=== PATIENT | female | born 1975 | race Two or more races ===

== ENCOUNTER 2020-11-29 10:30 | Emergency (ER) | payer OTHER ==
[~2020-11-29] VITALS: Ht 149.9 cm; Wt 117.9 kg
[2020-11-29 10:56] VITALS: BP 133/62
[2020-11-29] MEDS ORDERED: KETOROLAC TROMETH 60MG/2ML VIAL IM ONE (11:15)
== END 2020-11-29 11:59 | disposition home or self-care (01) ==
LOC: ER 10:30
DX: S83.91XA Sprain of unspecified site of right knee, initial encounter (principal); M17.11 Unilateral primary osteoarthritis, right knee; W18.09XA Striking against other object with subsequent fall, initial encounter; Y93.89 Activity, other specified; Y92.89 Other specified places as the place of occurrence of the external cause; Y99.8 Other external cause status
CPT/HCPCS: 73562; 96372; 99283; J1885

== ENCOUNTER 2023-01-23 11:04 | Emergency (ER) | payer MEDICAID, OTHER ==
[~2023-01-23] VITALS: Ht 149.9 cm; Wt 118.0 kg
[2023-01-23 12:00] VITALS: BP 113/72; PULSE 73; RESP 15; TEMP 97.3; O2SAT 98
== END 2023-01-23 13:05 | disposition home or self-care (01) ==
LOC: ER 11:04
DX: S93.401A Sprain of unspecified ligament of right ankle, initial encounter (principal); X50.1XXA Overexertion from prolonged static or awkward postures, initial encounter; Y93.89 Activity, other specified; Y92.89 Other specified places as the place of occurrence of the external cause; Y99.8 Other external cause status
CPT/HCPCS: 73610

== ENCOUNTER 2023-06-04 10:02 | Inpatient (IN) | payer MEDICAID ==
[~2023-06-04] VITALS: Ht 149.9 cm; Wt 58.6 kg
[2023-06-04 10:50] LABS: Urine Bacteria FEW /hpf (None Seen); Urine Blood Negative /uL (Negative); Urine Clarity HAZY (Clear); Urine Color Yellow (Yellow); Urine Mucus FEW (None Seen); Urine Protein, UAD TRACE (Negative); Urine Specific Gravity 1.021 (1.001-1.035); Urine Urobilinogen Normal (Negative); Urine WBC 2 /hpf (0 - 5); Urine pH 6.5 (5.0-8.0)
[2023-06-04] MEDS: ONDANSETRON ODT 4 MG TAB PO ONE (10:50)
[2023-06-04] MEDS: MORPHINE SULFATE INJ 2 MG/ml SYRG IM ONE (10:51)
[2023-06-04 11:20] LABS: Alanine Aminotransferase 28 U/L (7-40); Albumin 4.1 g/dL (3.2-4.8); Alkaline Phosphatase 117 U/L (46-116); Anion Gap 4 (5-15); Aspartate Aminotransferase 26 U/L (13-40); BUN/Creatinine Ratio 12.1 (10.0-20.0); Blood Urea Nitrogen 7 mg/dL (9-23); Calcium 9.3 mg/dL (8.7-10.4); Carbon Dioxide 24 mmol/L (20-30); Chloride 107 mmol/L (98-107); Glucose 101 mg/dL (74-106); Lipase 37 U/L (12-53); Potassium 4.7 mmol/L (3.5-5.1); Sodium 135 mmol/L (136-145)
[2023-06-04 11:21] LABS: Bilirubin, Total 0.4 mg/dL (0.2-1.0); Total Protein 7.2 g/dL (5.7-8.2)
[2023-06-04] MEDS: IOHEXOL 350 MG/ML 100ML IJ ONE (12:23)
[2023-06-04] MEDS ORDERED: ONDANSETRON HCL 4 MG/2 ML VIAL IV PRN (15:00)
[2023-06-04] MEDS ORDERED: ACETAMINOPHEN 325 MG TAB PO PRN (15:00)
[2023-06-04] MEDS ORDERED: MORPHINE SULFATE INJ 2 MG/ml SYRG IV PRN (15:00)
[2023-06-04] MEDS ORDERED: NITROGLYCERIN 0.4 MG SL TAB SL PRN (15:00)
[2023-06-04 16:10] LABS: Basophils # (auto) 0.1 10 ^3/uL (0-0.2); Basophils % (auto) 1.1 % (0.0-2.0); Eosinophils # (auto) 0.2 10 ^3/uL (0-0.8); Eosinophils % (auto) 1.9 % (0.0-7.0); Hematocrit 46.9 % (36.0-46.0); Hemoglobin 15.3 g/dL (12.2-16.2); Lymphocytes # (auto) 1.7 10 ^3/uL (0.4-5.4); Lymphocytes % (auto) 20.4 % (10.0-50.0); Mean Corpuscular Hemoglobin 29.7 pg (28.0-32.0); Mean Corpuscular Hgb Conc. 32.6 g/dL (32.0-36.0); Monocytes # (auto) 0.6 10 ^3/uL (0-1.3); Monocytes % (auto) 7.6 % (0.0-12.0); Neutrophils # (auto) 5.9 10 ^3/uL (1.6-8.6); Nucleated Red Blood Cells % 0.4 %; Red Blood Cells 5.15 10^6/uL (4.0-5.20); Red Cell Distribution Width 15.1 % (11.8-14.3); White Blood Cell 8.6 10^3/uL (4.4-10.8)
[2023-06-04 17:29] VITALS: PULSE 84; RESP 18; O2SAT 98
[2023-06-04] MEDS: HYDROcodone-ACET 5/325MG TAB PO PRN (18:27)
[2023-06-04 20:00] VITALS: BP 115/67; PULSE 120; PULSE 83; RESP 14; TEMP 98.2; O2SAT 93
[2023-06-04 20:55] VITALS: BP 115/67; PULSE 83; RESP 14; TEMP 98.2; O2SAT 93
[2023-06-04] MEDS: ATORVASTATIN 20 MG TAB PO SCH (21:15)
[2023-06-04] MEDS: MORPHINE SULFATE INJ 2 MG/ml SYRG IV PRN (21:18)
[2023-06-05] VITALS (8 sets, daily range): BP systolic 95–136; BP diastolic 67–114; PULSE 72–102; RESP 12–20; TEMP 36.8; O2SAT 92–98
[2023-06-05] MEDS: ENOXAPARIN SOD 40 MG/0.4 ML SYRINGE SC SCH (09:56)
[2023-06-05] MEDS: ASPirin 81 mg TAB PO SCH (09:56)
[2023-06-08 09:29] LABS: Hepatitis B Surface Antigen Negative (Negative)
[2023-06-08 09:50] LABS: Hepatitis C Antibody Negative (Negative)
== END 2023-06-05 20:20 | disposition home or self-care (01) | DRG 203 ==
LOC: ER 10:02 → TELE 14:58 → TELE-WESTW 17:15
PROVIDERS: ADMIT Internal Medicine; ATTEND Internal Medicine
DX: R07.89 Other chest pain (principal); E66.01 Morbid (severe) obesity due to excess calories; R10.9 Unspecified abdominal pain; E78.5 Hyperlipidemia, unspecified; Z86.73 Personal history of transient ischemic attack (TIA), and cerebral infarction without residual deficits; Z88.6 Allergy status to analgesic agent; Z68.26 Body mass index [BMI] 26.0-26.9, adult
CPT/HCPCS: 36415; 71045; 71275; 74176; 80053; 81001; 83690; 84484; 84702; 85025; 85379; 86803; 87340; 93005; 93306; 93971; 96372; G0378; Q0162

== ENCOUNTER 2024-06-18 14:39 | Emergency (ER) | payer MEDICAID ==
[~2024-06-18] VITALS: Ht 149.9 cm; Wt 115.0 kg
[2024-06-18 15:35] VITALS: BP 116/78; PULSE 98; RESP 18; TEMP 98.9; O2SAT 98
--- NOTE | 2024-06-18 15:50 | ED.PDOC ---
Musculoskeletal HPI Comments A 48 YEAR OLD FEMALE PRESENTS TO THE ED WITH COMPLAINT OF RIGHT THIGH PAIN AND RIGHT LOWER LEG PAIN STATUS POST FALL. PATIENT STATES SHE ACCIDENTALLY STEPPED IN A BUCKET NEAR THE POOL CAUSING HER TO FALL INTO THE POOL AND TWIST HER RIGHT LEG. PATIENT REPORTS HE IS NOW EXPERIENCING RIGHT THIGH PAIN AND RIGHT LOWER LEG PAIN. PATIENT DENIES HEAD INJURY, NECK INJURY, LOC, FEVER, CHILLS, SHORTNESS OF BREATH, CHEST PAIN, ABDOMINAL PAIN, NAUSEA, VOMITING, HEADACHE, OR OTHER COMPLAINTS. NO OTHER SYMPTOMS OR MODIFYING FACTORS AT THIS TIME. PATIENT IS ALERT, ORIENTED X 4, AND HAS STEADY GAIT. Chief Complaint: Fall Injury Time Seen by MD: 14:57 Primary Care Provider: MONSE Reviewed Notes: Nurses Notes, Medications, Allergies Allergies: Coded Allergies: Ibuprofen (Verified Allergy, Unknown, 06/04/23) No Known Drug Allergy (Verified Allergy, Unknown, 11/29/20) Home Meds No Active Prescriptions or Reported Meds Information Source: Patient Mode of Arrival: Wheelchair Location: Right Extremity Location: Leg (LOWER LEG), Thigh Timing: Hours Prehospital treatment: None Severity: Moderate Able to Move Extremity: Yes Bear Weight: Limited Pain: Moderate Mechanism: Twisting Circumstances: Fall Onset of Symptoms: After Trauma, During Exercise Symptoms: Pain DVT Risk Factors: NONE Last Tetanus: Unknown Associated signs and symptoms: Thigh pain, Leg pain Past Medical History PAST MEDICAL HISTORY: Arthritis, High Lipids Past Medical History (Other): OBESITY Surgical History: Denies all surgeries SECTION LEADER SCREEN PRINTING History: Denies all SECTION LEADER SCREEN PRINTING Hx Family History Family History: Reviewed,noncontributory to illness Social History Smoker: Non-Smoker Alcohol: Denies ETOH Use Drugs: Denies Drug Use Lives In: Home Constitutional: denies: chills, diaphoresis, fatigue, fever, malaise, sweats, weakness, others EENTM: denies: blurred vision, double vision, ear bleeding, ear discharge, ear drainage, ear pain, ear ringing, eye pain, eye redness, hearing loss, mouth pain, mouth swelling, nasal discharge, nose bleeding, nose congestion, nose pain, photophobia, tearing, throat pain, throat swelling, voice changes, others Respiratory: denies: cough, hemoptysis, orthopnea, SOB at rest, shortness of breath, SOB with excertion, stridor, wheezing, others Gastrointestinal: denies: abdomen distended, abdominal pain, blood streaked bowels, constipated, diarrhea, dysphagia, difficulty swallowing, hematemesis, melena, nausea, poor appetite, poor fluid intake, rectal bleeding, rectal pain, vomiting, others Genitourinary: denies: abnormal vagina bleeding, burning, dyspareunia, dysuria, flank pain, frequency, hematuria, incontinence, pain, , vagina discharge, urgency, others Neurological: denies: dizziness, fainting, headache, left sided numbness, left sided weakness, numbness, paresthesia, pre-existing deficit, right sided numbness, right sided weakness, seizure, speech problems, tingling, tremors, weakness, others Musculoskeletal: reports: muscle pain, others (RIGHT THIGH PAIN AND RIGHT LOWER LEG PAIN); denies: back pain, gout, joint pain, joint swelling, muscle stiffness, neck pain Integumetry: denies: bruises, change in color, change in hair/nails, dryness, laceration, lesions, lumps, rash, wounds, others Allergic/Immunocompromised: denies: Difficulty Healing, Frequent Infections, Hives, Itching, others Hematologic/Lymphatic: denies: anemia, blood clots, easy bleeding, easy bruising, swollen glands, others Endocrine: denies: excessive hunger, excessive sweating, excessive thirst, excessive urination, flushing, intolerance to cold, intolerance to heat, unexplained weight gain, unexplained weight loss, others Psychiatric: denies: anxiety, bipolar disorder, depression, hopeless, panic disorder, schizophrenia, sleepless, suicidal, others All Other Systems: Reviewed and Negative Physical Exam General Appearance: Obese HEENT: Normal ENT Inspection, PERRL/EOMI, Pharynx Normal, TMs Normal Neck: Full Range of Motion, Non-Tender, Normal, Normal Inspection Respiratory: Chest Non-Tender, Lungs Clear, No Accessory Muscle Use, No Respiratory Distress, Normal Breath Sounds Cardiovascular: No Edema, No JVD, No Murmur, No Gallop, Normal Peripheral Pulses, Regular Rate/Rhythm Breast Exam: Deferred Gastrointestinal: No Organomegaly, Non Tender, No Pulsatile Mass, Normal Bowel Sounds, Soft Genitalia: Deferred Pelvic: Deferred Rectal: Deferred Extremities: Decreased range of motion (SLIGHTLY. ), No calf tenderness, Normal capillary refill, Normal inspection, No pedal edema, Tender (AND MUSCLE SPASM ON RIGHT THIGH AND RIGHT LOWER LEG, NO BONY TENDERNESS, SWELLING AND DEFORMITY. ) Musculoskeletal : Apperance: Normal Neurologic: Alert, applications programmer analyst II-XII nml as Tested, No Motor Deficits, Normal Affect, Normal Mood, No Sensory Deficits Cerebellar Function: Normal Reflexes: Normal Skin: Dry, Normal Color, Warm Peripheral Pulses: 2+ carotid (R), 2+ carotid (L), 2+ dorsalis pedis (R), 2+ dorsalis pedis (L) Lymphatic: No Adenopathy Was a procedure done? Was a procedure done?: No Differential Diagnosis EXT Differential Diagnosis: Fracture, Sprain, Dislocation, Contusion, Strain X-Ray, Labs, Meds, VS Vital Signs Date Time Temp Pulse Resp B/P (MAP) Pulse Ox O2 Delivery O2 Flow Rate FiO2 06/18/24 15:35 98.9 98 18 116/78 (91) 95 98.9 06/18/24 15:35 98 18 98 Room Air 06/18/24 14:57 98.9 103 20 116/73 (87) 95 98.9 EXAM: XR Right Femur, 2 Views CLINICAL INDICATION: FALL TECHNIQUE: Frontal and lateral views of the right femur. COMPARISON: None FINDINGS: BONES/JOINTS: Unremarkable. No acute fracture. No dislocation. SOFT TISSUES: Unremarkable. OTHER FINDINGS: . None. IMPRESSION: No acute findings in the right femur. ATED BY: DEONNA WHITEHEAD MD DICTATED DATE/TIME: 06/18/241629 SIGNED BY: DEONNA WHITEHEAD MD SIGNED DATE/TIME: 06/18/24 163 CC: EXAM: XR Right Tibia and Fibula, 2 Views CLINICAL INDICATION: FALL TECHNIQUE: Frontal and lateral views of the right tibia and fibula. COMPARISON: None FINDINGS: BONES/JOINTS: Unremarkable. No acute fracture. No dislocation. SOFT TISSUES: Unremarkable. No radiopaque foreign body. OTHER FINDINGS: . None. IMPRESSION: No acute fracture. ATED BY: DEONNA WHITEHEAD MD DICTATED DATE/TIME: 06/18/241628 SIGNED BY: DEONNA WHITEHEAD MD SIGNED DATE/TIME: 06/18/241628 CC: X-Ray, Labs, Meds, VS Comment EXTERNAL MEDICAL RECORDS REVIEWED: [NONE] INDEPENDENT HISTORIANS: [NONE] SOCIAL DETERMINANTS OF HEALTH: [NONE] LABS ORDERED: NONE REVIEWED AND INTERPRETED RESULTS: NONE IMAGING ORDERED: XR FEMUR RT, XR TIB FIB RT TREATMENTS ORDERED: PROCEDURES PERFORMED: NONE CRITICAL CARE TIME: NONE I HAVE DISCUSSED THE PATIENT WITH THE ATTENDING PHYSICIAN DR. MENDIOLA AND HE AGREES WITH THE PATIENT'S PLAN OF CARE AND DISPOSITION. BASED ON HISTORY OF PRESENT ILLNESS, AND PHYSICAL EXAM, PATIENT WILL BE DISCHARGED HOME. DISCUSSED PLAN FOR DISCHARGE HOME WITH RX []. MEDICATION WARNINGS GIVEN. SHARED DECISION MAKING: PATIENT INSTRUCTED TO FOLLOW UP WITH PRIMARY CARE PROVIDER IN 1-2 DAYS FOR RE-EVALUATION OF SYMPTOMS. PATIENT VERBALIZES UNDER STANDING TO RETURN TO ED FOR NEW OR WORSENING SYMPTOMS OR IF FOLLOW UP WITH PCP CANNOT BE OBTAINED. PATIENT FEELS COMFORTABLE GOING HOME AT THIS TIME. ALL QUESTIONS ADDRESSED AT TIME OF DISCHARGE. Images Reviewed?: Images reviewed and evaluated by me Time of 1ST Reevaluation: 16:48 Reevaluation 1ST: Improved Patient Education/Counseling: Diagnosis, Treatment, Need For Follow Up Family Education/Counseling: Diagnosis, Treatment, Need For Follow Up Medical Screening: No EMC Exist At This Time Departure 1 Departure Time of Disposition: 17:00 Impression: Primary Impression: Muscle strain of right thigh Qualified Codes: S76.911A - Strain of unspecified muscles, fascia and tendons at thigh level, right thigh, initial encounter Additional Impressions: Muscle strain of right lower leg Qualified Codes: S86.911A - Strain of unspecified muscle(s) and tendon(s) at lower leg level, right leg, initial encounter Status post fall Disposition: HOME / SELF CARE / HOMELESS Condition: Stable Additional Instructions: FOLLOW-UP WITH PCP IN 1 TO 2 DAYS. TAKE MEDICATIONS PRESCRIBED. RETURN TO ED FOR ANY NEW OR WORSENING SYMPTOMS. e-Prescriptions Baclofen (Baclofen) 10 Mg Tab 10 MG PO BID, #20 TAB Prov: KRYSTA MATHEWS 06/18/24 Ibuprofen (Ibuprofen) 800 Mg Tab 1 TAB PO TID, #30 TAB Prov: KRYSTA MATHEWS 06/18/24 Discharged With: Self, Relative Critical Care Note Critical Care Time?: No Stability Stability form required: No I personally scribed for KRYSTA MATHEWS ([email or web address]) on 06/18/24 at 15:50. Electronically submitted by Dilip Jefferson ([email or web address]). I personally scribed for KRYSTA MATHEWS ([email or web address]) on 06/18/24 at 16:36. Electronically submitted by Dilip Jefferson ([email or web address]). I personally scribed for KRYSTA MATHEWS ([email or web address]) on 06/18/24 at 16:37. Electronically submitted by Dilip Jefferson ([email or web address]). KRYSTA MATHEWS Jun 18, 2024 15:50
--- NOTE | 2024-06-18 16:32 | DVH ---
EXAM: XR Right Tibia and Fibula, 2 Views CLINICAL INDICATION: FALL TECHNIQUE: Frontal and lateral views of the right tibia and fibula. COMPARISON: None FINDINGS: BONES/JOINTS: Unremarkable. No acute fracture. No dislocation. SOFT TISSUES: Unremarkable. No radiopaque foreign body. OTHER FINDINGS: . None. IMPRESSION: No acute fracture.
--- NOTE | 2024-06-18 16:32 | DVH ---
EXAM: XR Right Femur, 2 Views CLINICAL INDICATION: FALL TECHNIQUE: Frontal and lateral views of the right femur. COMPARISON: None FINDINGS: BONES/JOINTS: Unremarkable. No acute fracture. No dislocation. SOFT TISSUES: Unremarkable. OTHER FINDINGS: . None. IMPRESSION: No acute findings in the right femur.
[2024-06-18] MEDS ORDERED: BACL10TA PO (16:49)
[2024-06-18] MEDS ORDERED: IBUP-1456 PO (16:49)
== END 2024-06-18 17:00 | disposition home or self-care (01) ==
LOC: ER 14:39
DX: S76.911A Strain of unspecified muscles, fascia and tendons at thigh level, right thigh, initial encounter (principal); S86.911A Strain of unspecified muscle(s) and tendon(s) at lower leg level, right leg, initial encounter; M19.90 Unspecified osteoarthritis, unspecified site; E78.5 Hyperlipidemia, unspecified; E66.9 Obesity, unspecified; Z88.6 Allergy status to analgesic agent; W19.XXXA Unspecified fall, initial encounter; Y93.89 Activity, other specified; Y92.89 Other specified places as the place of occurrence of the external cause; Y99.8 Other external cause status
CPT/HCPCS: 73590